=== PATIENT | female | born 1965 | race Caucasian/White ===

== ENCOUNTER 2017-12-08 16:57 | Emergency (ER) | payer SELFPAY ==
[2017-12-08 17:13] VITALS: BP 128/74
--- NOTE | 2017-12-08 17:27 | UC ---
Lower Extremity/Ankle HPI - HPI Summary HPI Summary: 13 days ago pt was sitting in a chair and when she stood up her R foot was asleep and her ankle fully inverted. Since then has had ongoing pain and swelling, bruising spread to the base of her toes, today noticed new pain on top of her foot and the back of her joint. - History of Current Complaint Chief Complaint: UCLowerExtremity Stated Complaint: LEG INJURY Time Seen by Provider: 12/08/17 17:04 Hx Obtained From: Patient ?: No Onset/Duration: Sudden Onset Severity Initially: Moderate Severity Currently: Mild Pain Intensity: 6 Aggravating Factor(s): Standing, Ambulation Alleviating Factor(s): Rest, Elevation Able to Bear Weight: Yes - Allergies/Home Medications Allergies/Adverse Reactions: Allergies Allergy/AdvReac Type Severity Reaction Status Date / Time chlorhexidine Allergy Rash Verified 12/08/17 17:17 PMH/Surg Hx/FS Hx/Imm Hx Previously Healthy: Yes - Surgical History Surgical History: Yes Surgery Procedure, Year, and Place: tonsillectomy. weight loss surgery - 2007. hysterectomy - 2011 - Family History Known Family History: Positive: Cardiac Disease, Hypertension - Social History Alcohol Use: Rare Substance Use Type: None Smoking Status (MU): Never Smoked Tobacco Have You Smoked in the Last Year: No - Immunization History Most Recent Influenza Vaccination: none Hx Tetanus, Diphtheria Vaccination: Yes Vaccination Up to Date: Yes Review of Systems Constitutional: Negative Skin: Negative Eyes: Negative ENT: Negative Respiratory: Negative Cardiovascular: Negative Gastrointestinal: Negative Genitourinary: Negative Motor: Negative Neurovascular: Negative Musculoskeletal: Arthralgia, Decreased ROM Neurological: Negative Psychological: Negative Is Patient Immunocompromised?: No All Other Systems Reviewed And Are Negative: Yes Physical Exam Triage Information Reviewed: Yes Appearance: Well-Appearing, No Pain Distress, Well-Nourished Vital Signs: Initial Vital Signs Temp 97.5 F 12/08/17 17:08 Pulse 74 12/08/17 17:08 Resp 18 12/08/17 17:08 BP 128/74 12/08/17 17:08 Pulse Ox 100 12/08/17 17:08 Vital Signs Reviewed: Yes Eye Exam: Normal Eyes: Positive: Conjunctiva Clear ENT Exam: Normal ENT: Positive: Normal ENT inspection, Hearing grossly normal, Pharynx normal, TMs normal Dental Exam: Normal Neck exam: Normal Neck: Positive: Supple Respiratory Exam: Normal Respiratory: Positive: Chest non-tender, Lungs clear, Normal breath sounds, No respiratory distress, No accessory muscle use Cardiovascular Exam: Normal Cardiovascular: Positive: RRR, No Murmur Musculoskeletal Exam: Other - swelling R ankle, tender over R lateral malleolus , pain at posterior joint Neurological Exam: Normal Neurological: Positive: Alert Psychological Exam: Normal Skin Exam: Other - bruising to R ankle on lateral aspect and dorsal foot near toes Diagnostics - Radiology No standard instances Xray Interpretation: No Acute Changes Radiology Interpretation Completed By: Radiologist Lower Extremity Course/Dx - Differential Dx/Diagnosis Provider Diagnoses: R ankle sprain Discharge - Sign-Out/Discharge Documenting (check all that apply): Discharge/Admit/Transfer - Discharge Plan Condition: Stable Disposition: HOME Patient Education Materials: Ankle Sprain (ED) Referrals: Bon Fournier MD [Primary Care Provider] - Patti Jansen MD [Medical Doctor] - Additional Instructions: Use the gel splint for weight bearing and follow up with an orthopedist. I suspect you will need more time and possibly physical therapy. - Billing Disposition and Condition Condition: STABLE Disposition: HOME
--- NOTE | 2017-12-08 17:44 | RAD ---
HISTORY: Right ankle injury COMPARISONS: November 20, 2014 VIEWS: 3, Frontal, lateral, and oblique views of the right ankle FINDINGS: BONE DENSITY: Normal. BONES: There is no displaced fracture. JOINTS: There is no arthropathy. There is joint effusion. ALIGNMENT: There is no dislocation. SOFT TISSUES: There is circumferential soft tissue swelling. OTHER FINDINGS: None. IMPRESSION: SOFT TISSUE SWELLING. JOINT EFFUSION. NO ACUTE OSSEOUS INJURY. IF SYMPTOMS PERSIST, RECOMMEND REPEAT IMAGING.
== END 2017-12-08 17:57 | disposition home or self-care (01) ==
LOC: UCEAST 16:57
DX: S93.401A Sprain of unspecified ligament of right ankle, initial encounter (principal); X58.XXXA Exposure to other specified factors, initial encounter; Y93.89 Activity, other specified; Y92.9 Unspecified place or not applicable
CPT/HCPCS: 99212; G0463